=== PATIENT | female | born 1955 | race Caucasian/White ===

== ENCOUNTER 2025-06-19 11:02 | Outpatient (AMB) | payer BC, SELFPAY ==
--- OUTSIDE RECORDS SUMMARY | 2025-05-16 09:02 | XMS_ITS | Continuity of Care Document ---
Author Organization [facility] Address [address] [facility] [address] [place] [address] Phone Care Team Providers Care Animal Husbandry Professor Name Role Phone Figueroa TROTTER, DENNIS, Eliel PERRY Unavailable U navailable Allergies, Adverse Reactions, Alerts Substance Reaction Status Criticality No Known Allergies Active No Inform ation Procedures Procedure Date Office/Outpt E&M Established 25 Mins- CT & [place] Surgical Stockings CVR Reveal Knee High 20-30 Duplex Scan-extrem Veins; Comp- CT & [place] Office/Outpt E&M Established 15 Mins- CT & [place] Duplex Scan-extrem Veins; Comp- CT & [place] Offic Cons New/estab Mod 40 Mi- CT & [place] Duplex Scan-extrem Veins; Comp- CT & [place] Advance Directives Directive Yes / No Effective Date File Name No Information Encounters Encounter Description Practice Location Reason(s) For Visit Diagnoses Date Provider Providers Copied on Encounter [facility], [address] [facility] [address], [place], [id number], [place] tel:[phone] CVR - [facility] No Information 5 Figueroa TROTTER, [place] CO[place]. [address] [facility] [address], [place], [id number] , [place]. tel:[phone] Office/Outpt E&M Established 25 Mins- CT & [place] [facility], [address] [place] [address] Dr Schwartz [address]C[place], [id number], tel:[phone] [place] Chronic venous hypertension (idiopathic) with other complications of bilateral lower extremityEssent ial (primary) hypertension 5 Figueroa TROTTER RVT, [place] Julian. [address] [place] [address], [place], [id number] , [place]. tel:[phone] Referring Provider: Charmaine Hong, [address] [place] [address] [place], [address]. tel:[phone] [facility], [address] [place] [address] Dr Schwartz [address]Cesar [place], [id number], [place] tel:[phone] CV[place] Chronic venous hypertension (idiopathic) with other complications of bilateral lower extremity 5 Figueroa TROTTER RVT, [place] Julian. [address] [place] [address], [place], [id number] , [place]. [phone] Referring Provider: Eliel Marti MD, RVT, RPVI, [address] [place] [address], [facility] [place], [address] . tel:[phone] Office/Outpt E&M Established 15 Mins- CT & [place] [facility], [address] [place] [address] Dr Schwartz [address]Suite Cesar [place], [id number], [place] tel:[phone] CVR - [facility] Venous insufficiency (chronic) (peripheral)Ess ential (primary) hypertension 4 Figueroa TROTTER RVT, RPVI Robert. [address] [place] [address], [facility] [place], [id number] , [place]. [phone] Referring Provider: Hetal Leiva NP, [facility] [facility] [employer] [address] [place], [address]. tel:[phone] [facility], [address] [place] [address] Dr [address]Cesar [place], [id number], tel:[phone] CVR - [place] Chronic venous hypertension (idiopathic) with other complications of bilateral lower extremity 4 Figueroa TROTTER RVT, [place] Julian. [address] [facility], [address], [place], [id number] , [place]. tel:[phone] Referring Provider: Eliel Marti MD, RVT, [place], [address] [place] [address] [address], [place], [address] . tel:[phone] Offic Cons New/estab Mod 40 Mi- CT & [place] [facility], [address] [place] [address] Dr Schwartz [address]Cesar [place], [id number], [place] tel:[phone] CV[place] - [place] Pain in right lower legPain in left lower legPain in right legPain in left legEssential (primary) hypertensionVen ous insufficiency (chronic) (peripheral)Cardiology Teacher mp and spasmLocalized edema 4 Figueroa TROTTER RVT, [place] Julian. [address] [facility], [address], [place], [id number] , [place]. [phone] Referring Provider: Stephen Merchant DPM, [facility] [address], [place], [address]. tel:[phone] [facility], [address] [place] [address] Dr Schwartz [address]Cesar [place], [id number], [place] tel:[phone] CVR - [place] Chronic venous hypertension (idiopathic) with other complications of bilateral lower extremity 4 Figueroa TROTTER RVT, [place] Julian. [address] [facility], [address], [place], [id number] , [place]. tel:[phone] Referring Provider: Eliel Marti MD, RVT, [place], [address] [facility] [address], [place], [address] . tel:[phone] Family History Family Member Type Diagnosis Age At Onset No Information Payers Payer name Insurance type Covered democrat ID Authoriza tijocelyn(s) [place] [id number] Social History Type Description Quantity Date Captured Comments Sex Female Smoking Status No Information Chief Complaint And Reason For Visit No Information Reason For Referral Reason For Referral No Information Plan Of Treatment Date Type Action Status Goal Tobacco cessation counseling completed Goal Diet education completed Goal Tobacco cessation counseling completed Goal Diet education completed Goal Diet education completed Goal Tobacco cessation counseling completed Referral Ordered: Weight management: Referral to physician timeframe: 3 Months (related to Body mass index (BMI) 29.0-29.9, adult) ordered Referral Ordered: Weight management: Referral to physician timeframe: 3 Months (related to Body mass index (BMI) 29.0-29.9, adult) ordered Referral Ordered: Weight management: Referral to physician timeframe: 3 Months (related to Body mass index (BMI) 29.0-29.9, adult) ordered Appointment Rebecca Villanueva BOOKED Appointment Rebecca Villanueva BOOKED Appointment Rebecca Villanueva BOOKED Appointment Rebecca Villanueva BOOKED History Of Present Illness Encounter Date Complaint History Of Prese nt Illness No Information Functional Status Date Functional Assessmen t No Information Instructions Date Instruction Additional Infor elisa Pre and post instruc tions reviewed and provided Related to Chronic venous hypertension (idiopathic) with other complications of bilateral lower extremity Lifestyle education Related to B shanti mass index (BMI) 29.0-29.9, adult Giving Encouragement to exercise Related to Body mass index (BMI) 29.0-29.9, adult Diet education Related to Body mass index (BMI) 29.0-29.9, adult Patient education booklet given Related to Chronic venous hypertension (idiopathic) with other complications of bilateral lower extremity Lifestyle education Related to B shanti mass index (BMI) 29.0-29.9, adult Giving Encouragement to exercise Related to Body mass index (BMI) 29.0-29.9, adult Diet education Related to Body mass index (BMI) 29.0-29.9, adult Patient education booklet given Related to Venous insufficiency (chronic) (peripheral) Compression stocking usage as conservative measure Related to Venous insufficiency (chronic) (peripheral) Patient education booklet given Related to Pain in right lower leg Lifestyle education Related to B shanti mass index (BMI) 29.0-29.9, adult Giving Encouragement to exercise Related to Body mass index (BMI) 29.0-29.9, adult Diet education Related to Body mass index (BMI) 29.0-29.9, adult Compression stocking usage as conservative measure Related to Pain in right lower leg Assessments Type Assessment Date No Information Patient Care Teams Name Effective Dates (start - stop) Status Members No Information
--- OUTSIDE RECORDS SUMMARY | 2025-06-19 11:57 | XMS_ITS | Clinical Summary ---
Author Organization [facility] [address] [facility] [address] Address [address] [place] [address] Phone Care Team Providers Care Rink Rat Name Role Phone Hetal Bruton NP Primary Care Provider Allergies No known active allergies Encounters Date Type Department Care Team Description 06/04/2025 Telephone Gastroenterology - [address] [phone] Rachel Rowell MD 03/28/2025 8:30 AM EDT Office Visit Gastroenterology - [address] [phone] Rut Hoffmann NP Gastroesophageal reflux disease, unspecified whether esophagitis present (Primary Dx) from Last 3 Months Social History Tobacco Use Types Packs/Day Years Used Date Smoking Tobacco: Never Assessed Comments Unknown Sex and Gender Information Value Date Recorded Sex Assigned at Not on file Legal Sex Female 2:01 AM EST Gender Identity Not on file Sexual Orientation Not on file Last Filed Vital Signs Vital Sign Reading Time Taken Comments Blood Pressure - - Pulse - - Temperature - - Respiratory Rate - - Oxygen Saturation - - Inhaled Oxygen Concentration - - Weight 78.5 kg (173 lb) 03/28/2025 8:20 AM EDT Height 165.1 cm (5' 5 ) 03/28/2025 8:20 AM EDT Body Mass Index 28.79 03/28/2025 8:20 AM EDT Plan of Treatment Health Maintenance Due Date Last Done Comments Pneumococcal Vaccine: 50+ Years (1 of 1 - PCV) 2004 Zoster Vaccines (1 of 2) 2004 Cholesterol Screening (Lipid Panel) 09/26/2022 Colorectal Cancer Screening: Colonoscopy 09/26/2022 Falls Risk Assessment 09/26/2022 Hepatitis C Screening 09/26/2022 Medicare Annual Wellness Visit 09/26/2022 Osteoporosis Screening (Bone Density Screening) 09/26/2022 Social Influencers of Health Screening 09/26/2022 COVID-19 Vaccine ( season) 2024 09/15/2021, 01/26/2021, 12/29/2020 Hypertension/CHF/CAD Annual BMP Blood Test 10/16/2024 Depression Screening 10/24/2024 Influenza Vaccine (#1) 2025 08/07/2020, 2018 Breast Cancer Screening 07/25/2026 07/25/20, 07/20/2023, 07/18/2022, Additional history exists DTaP,Tdap,and Td Vaccines (2 - Td or Tdap) 11/28/2028 11/28/2018 RSV Immunization Adult Patients (1 - 1-dose 75+ series) 2029 HIB Vaccines Aged Out No longer eligi ble based on patient's age to complete this topic HPV Vaccines Aged Out No longer eligi ble based on patient's age to complete this topic Hepatitis A Vaccines Aged Out No long er eligible based on patient's age to complete this topic Hepatitis B Vaccines Aged Out No long er eligible based on patient's age to complete this topic IPV Vaccines Aged Out No longer eligi ble based on patient's age to complete this topic MMR Vaccines Aged Out No longer eligi ble based on patient's age to complete this topic Meningococcal ACWY Vaccine Aged Out N o longer eligible based on patient's age to complete this topic Meningococcal B Vaccine Aged Out No l onger eligible based on patient's age to complete this topic RSV Immunization Patients Under 20 months Aged Out No longer eligible based on patient's age to complete this topic Varicella Vaccines Aged Out No longer eligible based on patient's age to complete this topic Procedures Procedure Name Priority Date/Time Associated Diagnosis Comments VENU SCREENING DIGITAL Routine 07/25/2024 4:04 PM EDT Encounter for screening mammogram for malignant neoplasm of breast from Last 3 Months or Most Recently Relevant to Health Maintenance Results * [facility] SCREENING DIGITAL (07/25/2024 4:04 PM EDT) Anatomical Region Laterality Modality Mammography 07/25/2024 7:13 AM EDT Narrative 07/25/2024 4:[address] [facility] Diagnostic Imaging Department [address] [place] [address] Patient: REBECCA BHAGAT Sarah /Age/Sex: 1955 - 68 - F Unit#: [id number] Location/Status: [facility] CLI Mnemonic/Ordering Site: [facility] Ordering Physician: HETAL BURTON NP [facility] Screening Digital - 07/25/24 0732 Report Status:Signed EXAM: [facility] Screening Digital EXAM DATE AND TIME: 07/25/2024 7:32 AM HISTORY: Screening. Excisional and percutaneous left breast biopsies yielding benign pathology. COMPARISON: 07/20/23, 07/17/22, 06/30/21, 06/18/20 TECHNIQUE: Bilateral digital breast tomosynthesis was performed in the CC and MLO projections. Computer aided detection with Clearhaus 3D 3.1 was employed. TISSUE DENSITY: b. There are scattered areas of fibroglandular density. FINDINGS: The left nipple is not in profile on the views provided. The patient will be recalled for nipple spot compression tomosynthesis views at no additional charge. Mild asymmetry and architectural distortion are again seen in the upper left breast, stable, consistent with surgical scar. A biopsy marker is also seen in the upper outer left breast. No suspicious masses, grouped microcalcifications, or developing architectural distortion are seen. The skin and vascularity are unremarkable. IMPRESSION: 1. Left breast nipple in profile views needed for completion mammography. The patient will be called back. 2. Stable mammographic appearance of the right breast. No evidence of malignancy is seen. BI-RADS: Category 0: Incomplete - Need Additional Imaging Evaluation RECOMMENDATION(S): 1: Special mammographic view(s) needed LEFT [facility]amm[facility] performed at [facility] [place] [address] Dictating Physician: THIAGO KNOWLES MD Electronically Signed by: THIAGO KNOWLES MD Dic Date/Time: 07/25/24 1601 Sign date/Time: 07/25/24 160 Procedure Note Thiago Knowles MD - 08/21/2024 [facility] Diagnostic Imaging Department [address] [place] [address] Patient: BHAGATREBECCA T /Age/Sex: 1955 - 68 - F Unit#: [id number] Location/Status: [facility]/REG CLI Mnemonic/Ordering Site: [facility] Ordering Physician: HETAL BURTON NP [facility] Screening Digital - 07/25/24 - 0732 Report Status:Signed EXAM: [facility] Screening Digital EXAM DATE AND TIME: 07/25/2024 7:32 AM HISTORY: Screening. Excisional and percutaneous left breast biopsiesyielding benign pathology. COMPARISON: 07/20/23, 07/17/22, 06/30/21, 06/18/20 TECHNIQUE: Bilateral digital breast tomosynthesis was performed in the CCand MLO projections. Computer aided detection with Clearhaus 3D 3.1was employed. TISSUE DENSITY: b. There are scattered areas of fibroglandular density. FINDINGS: The left nipple is not in profile on the views provided. The patient willbe recalled for nipple spot compression tomosynthesis views at noadditional charge. Mild asymmetry and architectural distortion are again seen in the upperleft breast, stable, consistent with surgical scar. A biopsy marker is alsoseen in the upper outer left breast. No suspicious masses, grouped microcalcifications, or developingarchitectural distortion are seen. The skin and vascularity are unremarkable. IMPRESSION: 1. Left breast nipple in profile views needed for completion mammography.The patient will be called back. 2. Stable mammographic appearance of the right breast. No evidence of malignancy is seen. BI-RADS: Category 0: Incomplete - Need Additional Imaging Evaluation RECOMMENDATION(S): 1: Special mammographic view(s) needed LEFT Mammogram performed at [facility] [place] [address] Dictating Physician: THIAGO KNOWLES MD Electronically Signed by: THIAGO KNOWLES MD Dic Date/Time: 07/25/24 1601 Sign date/Time: 07/25/24 1604 Hetal Burton NP IMG BI PROCEDURES Final Resu lt from Last 3 Months or Most Recently Relevant to Health Maintenance Insurance BLUE CR[place] - [place] MEDIC[place] ADVANT[place] Care Teams Rink Rat Relationship Specialty Start Date End Date Hetal Burton NP [address] [place] [address] PCP - General Nurse Practitioner 10/05/24
--- OUTSIDE RECORDS SUMMARY | 2025-06-19 11:57 | XMS_ITS | Patient Health Record ---
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 foot (M19.072) Diagnosis 4 Flat foot [pes planu s] (acquired), left foot (M21.42) Diagnosis 5 Pain in left foot (M 79.672) Diagnosis 6 Pain in left toe(s) (M79.675) Diagnosis 7 Subungual hematoma o f left foot, initial encounter (S90.222A) Diagnosis 8 Contusion of lesser toe of left foot without damage to nail, initial encounter (S90.122A) Diagnosis 9 Closed non-physeal f racture of middle phalanx of lesser toe of left foot, initial encounter (S92.522A) Diagnosis 10 Strain of foot, left (S96.912A) Diagnosis 11 Edema, lower extremi ty (R60.0) Diagnosis 12 Pain in left ankle a nd joints of left foot (M25.572) Diagnosis 13 Pain in unspecified joint (M25.50) Diagnosis 14 Joint disorder, unsp ecified (M25.9) Diagnosis 15 Other bursitis, not elsewhere classified, left ankle and foot (M71.572) Diagnosis 16 Metatarsalgia, left foot (M77.42) Referring Provider First Name Hetal Referring Provider Last Name Cali Referred [facility] Referred Provider Jean Carlos Disla Referred Address [address] [place],[address],[place] Referred Provider Specialty Podiatry Referral Priority Routine Medications Medication SIG (Take, Route, Frequency, Duration) Notes Start Date End Date Status Meloxicam 15 MG 1 tablet Orally Once a day Unknown Mucinex Unknown Fluticasone Furoate Unknown Calcium + D Unknown Lisinopril 5 MG 1 tablet Orally Once a day Unknown Vitamin D Unknown Magnesium 500 MG 1 tablet with a meal Orally Once a day; Duration: 30 day(s) Not-Taking Compression Stockings 20-30mm Hg 1 pair wear daily; Duration: 30 days Active ASO Ankle/Foot Stablizing AFO As directed Wear Daily; Duration: as needed 01/29/2022 Active Vitamin D3 50 MCG (1999 UT) 1 capsule Orally Once a day; Duration: 30 day(s) Active Vitamin C 1000 MG 1 tablet Orally Once a day Active PreserVision AREDS A ctive Hertel 3 Active Levothyroxine Sodium 125 MCG 1 tablet in the morning on an empty stomach Orally Once a day; Duration: 30 day(s) night time Active Cod Liver Oil - as directed Orally Active Fish Oil 1000 MG 1 capsule Orally Once a day Active amLODIPine Besylate 5 MG 1 tablet Orally Once a day; Duration: 30 day(s) Active Lexapro 20 MG 1 tablet Orally Once a day; Duration: 30 day(s) Active Immunizations Vaccine Route Administration Date Status Comme [facility] COVID-19 Moderna Vaccine Unknown 09/15/2021 Administered 1st 12/29/20 2nd 01/26/21 Social History Tobacco Use: Social History Observation Description Date Details (start date - stop date) Former Smoker NA - NA Tobacco Use/Smoking Question Answer Notes Are you a: former smoker Additional Findings: Tobacco Non-User Current no n-smoker Alcohol Screen Question Answer Notes Did you have a drink containing alcohol in the p ast year? Yes Points 0 Interpretation Negative Tobacco use other than smoking: Question Answer Notes Are you an other tobacco user? No Problems Problem Type SNOMED Code ICD Code Onset Dates Problem Status W/U Status Risk Notes Problem 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 Vital Signs Blood pressure diastolic 80 mm Hg 07/06/2024 Height 5 ft 5 in in 07/06/2024 Blood pressure systolic 120 mm Hg 07/06/2024 Weight 172 lbs 07/06/2024 BMI 28.62 kg/m2 07/06/2024 Encounters Encounter Location Date Provider Diagnosis [facility] [address] [place] [address] 07/06/2024 Jean Carlos Disla Contusion of lesser toe of left foot without damage to nail, initial encounter S90.122A ; Pain in left toe(s) M79.675 and Closed non-physeal fracture of middle phalanx of lesser toe of left foot, initial encounter S92.522A Assessments Encounter Date Diagnosis (ICD Code) Assessment Notes Treatment Notes Treatment Clinical Notes Section Notes 07/06/2024 Contusion of lesser toe of left foot without damage to nail, initial encounter (ICD-10 - S90.122A) 07/06/2024 Closed non-physeal fracture of middle phalanx of lesser toe of left foot, initial encounter (ICD-10 - S92.522A) 07/06/2024 Pain in left toe(s) (ICD-10 - M79.675) Plan Of Treatment Pending Test Test Name Order Date X ray : Foot, left 3V 07/06/2024 Insurance Providers Payer Name Payer Address Payer Phone Subscriber Number Group Number Insured Name Patient Relationship to Insured Coverage Start Date Coverage End Date [employer] 65 Medicare Preferred [address] [place] [address] [phone] [id number] Rebecca Ortiz Self - patient is the insured Medical (General) History Medical History History ICD Code Arthritis Back,Hip,and Knee pain Fibromyalgia Hypertension Macular degeneration Thyroid disorder Sinus conditions Cataracts Diverticulosis Surgical History Surgery Date(Month/Year) removal of partial ovaries 1989 Thyroid Surgery 1997? Left ovary surgery 1999?
--- OUTSIDE RECORDS SUMMARY | 2025-06-19 11:57 | XMS_ITS | Encounter Summary ---
Author Organization [facility] Address [address] [facility] [address] [place] [address] Phone Care Team Providers Care Decatizer Name Role Phone Robert Oliva MD Primary Care Provider [phone] Encounter Details Date Type Department Care Team (Late Contact Info) Description 06/16/2022 Documentation Only [facility] [address] [place] [address] Mykel Peoples MD [address] [place] [address] [place] [address] Social History Tobacco Use Types Packs/Day Years Used Date Smoking Tobacco: Former Cigarettes Q uit: 10/24/1971 Comments:Smoking History Inf o:Every day Alcohol Use Standard Drinks/Week Comments Yes 0 (1 standard drink = 0.6 oz pure alcohol) Alcoholic Drinks/day: Occasional social drink Comments Unknown Sex and Gender Information Value Date Recorded Sex Assigned at Not on file Legal Sex Female 11:02 AM EST Gender Identity Not on file Sexual Orientation Not on file documented as of this encounter Plan of Treatment Upcoming Encounters Date Type Department Care Team (Late st Contact Info) Description 12/20/2025 1:30 PM EST Office Visit [facility] [address] [place] [address] Mykel Peoples MD [address] [place] [address] [place] [address] documented as of this encounter Visit Diagnoses Not on filedocumented in this encounter Care Teams Decatizer Relationship Specialty Start Date End Date Robert Oliva MD [address] [place] [address] PCP - General Internal Medicine 07/01/21 documented as of this encounter
--- OUTSIDE RECORDS SUMMARY | 2025-06-19 11:57 | XMS_ITS | Clinical Summary ---
Author Organization [facility], Address [address] [place] [address] [place] [address] Phone Care Team Providers Care International Nurse Name Role Phone Robert Oliva MD Primary Care Provider [phone] Medications ASPIRIN 81 PO aspirin Active amLODIPine Besylate (NORVASC PO) amlodipine Active nitrofurantoin, macrocrystal-mo nohydrate, (Macrobid) 100 MG capsule 1 capsule 2 (two) times a day Active omeprazole OTC (PriLOSEC OTC) 20 MG EC tablet Take 1 tablet by mouth 1 (one) time each day Active sucralfate (Carafate) 1 GM/10ML suspension Comments: Filled Date: Mar 22 2017 12:00AM Patient Notes: TAKE 2 TEASPOONFULS (10 MILLILITERS) BY MOUTH FOUR TIMES A DAY NEED ED Duration: 30 7 Active amLODIPine (NORVASC) 5 MG tablet Take 5 mg by mouth 1 (one) time each day Active Aspirin Low Dose 81 MG chewable tablet Chew 81 mg 1 (one) time each day 1 Active ergocalciferol 1.25 MG (29399 UT) capsule Take 1 capsule by mouth every 14 (fourteen) days Active levothyroxine (SYNTHROID, LEVOTHROID) 125 MCG tablet Take 100 mcg by mouth 1 (one) time each day 1 Active methylPREDNISol one (MEDROL DOSPAK) 4 MG tablet TAKE 6 TABLETS ON DAY 1 DIRECTED ON PACKAGE AND DECREASE BY 1 TAB EACH DAY FOR A TOTAL OF 6 DAYS 1 Active omeprazole (PriLOSEC) [address] capsule 1 Active fluticasone (FLONASE) 50 MCG/ACT nasal spray USE 1 SPRAY IN EACH NOSTRIL TWICE A DAY 2 Active hydrOXYzine (ATARAX) 25 MG tablet TAKE 1 TABLET BY MOUTH TWICE A DAY NEEDED FOR ANXIETY FOR 30 DAYS 2 Active prednisoLONE Sodium Phosphate 6.7 (5 Base) MG/5ML solution TAKE 1 TEASPOON BY MOUTH TWICE A DAY, GARGLE AND SWALLOW FOR 10 DAYS. 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 Hypertensive disorder 11/27/2019 Encounters Date Type Department Care Team Description 03/25/2025 Telephone [facility] [address] [place] [address] Mayda aCrreon MA from Last 3 Months Family History Medical History Relation Comments Heart disease Father Diabetes Mother type 2 Heart disease Mother Hypertension Mother Relation Status Comments Father Mother Social History Tobacco Use Types Packs/Day Years [...] Sign Reading Time Taken Comments Blood Pressure 120/58 12/17/2024 9:10 AM EST Pulse - - Temperature - - Respiratory Rate - - Oxygen Saturation - - Inhaled Oxygen Concentration - - Weight 79.2 kg (174 lb 9.6 oz) 06/27/2019 12:00 PM EDT Height 167.6 cm (5' 6 ) 06/27/2019 12:00 PM EDT Body Mass Index 28.18 06/27/2019 12:00 PM EDT Plan of Treatment Upcoming Encounters Date Type Department Care Team (Late st Contact Info) Description 12/20/2025 1:30 PM EST Office [facility] [address] [place] [address] Mykel Peoples MD [address] [address] [place] [id number] Health Maintenance Due Date Last Done Comments Breast Cancer Screening 1954 Pneumococcal Vaccine: 50+ Years (1 of 2 - PCV) 1973 Colorectal Cancer Screening: Annual FOBT 2003 Colorectal Cancer Screening: Colonoscopy 2003 Colorectal Cancer Screening: Sigmoidoscopy 2003 Influenza Vaccine (#1) 2025 , 11/06/2018 Hepatitis B Vaccine Aged Out No longe r eligible based on patient's age to complete this topic Insurance [facility] Care Teams International Nurse Relationship Specialty Start Date End Date Robert Oliva MD [address] [place] [id number] PCP - General Internal Medicine 07/01/21
== END 2025-06-19 11:05 | disposition home or self-care (01) ==
LOC: HO.HMGAL 11:02
PROVIDERS: PCP Nurse Practitioner Adult Health; Visit Provider Registered Nurse Emergency
DX: J30.89 Other allergic rhinitis (principal)
CPT/HCPCS: 95117; 95165

== ENCOUNTER 2025-09-16 14:22 | Outpatient (AMB) | payer BC, SELFPAY ==
--- OUTSIDE RECORDS SUMMARY | 2025-09-02 04:00 | XMS_ITS | Continuity of Care Document ---
Author Organization [facility] Address [address] [place] [address] Phone Care Team Providers Care Internal Specialist Name Role Phone Figueroa TROTTER, RVT, RPADRIANA, Eliel Unavailable U navailable Allergies, Adverse Reactions, Alerts Substance Reaction Status Criticality No Known Allergies Active No Inform ation Procedures Procedure Date Office/Outpt E&M Established 15 Mins- CT & [place] Duplex Scan-extrem Veins; Comp- CT & [place] Duplex Scan-extrem Veins; Uni/ CT & MA S Varithena, Single Truncal Vein - CT & [place] Office/Outpt E&M Established 25 Mins- CT & [place] Surgical Stockings CVR Reveal Knee High 20-30 Duplex Scan-extrem Veins; Comp- CT & [place] Office/Outpt E&M Established 15 Mins- CT & [place] Duplex Scan-extrem Veins; Comp- CT & [place] Offic Cons New/estab Mod 40 Mi- CT & [place] Duplex Scan-extrem Veins; Comp- CT & [place] Advance Directives Directive Yes / No Effective Date File Name Other Directive No 09/02/2025 N/A WARNING:The information contained in this section is historical and is provided for information only and does not constitute a legal document or any assurance that the information is still accurate. Please verify the information with the ly of the legal document before using it for clinical purposes. Encounters Encounter Description Practice Location Reason(s) For Visit Diagnoses Date Provider Providers Copied on Encounter Office/Outpt E&M Established 15 Mins- CT & [place] [facility] MD [facility], [address] [place] [address] Dr Schwartz 1000Suvaleri 1000Cesar [place], [id number], tel:[phone] R - [facility] Localized edemaVenous insufficiency (chronic) (peripheral)Ess ential (primary) hypertension 5 Figueroa TROTTER RVT, [place] Julian. [address] [place] [address], [place] [address], [facility] [place], [id number] , [place]. tel:[phone] Referring Provider: Charmaine Hong, [facility], [facility], [address]. tel:[phone] [facility], [address] [place] [address] Dr Schwartz [facility] [place], [id number], [place] tel:[phone] [facility] Varicose veins of bilateral lower extremities with pain 5 Figueroa TROTTER RVT, [place] Julian. [address] [place] [address], [facility] [place], [id number] , [place]. tel:[phone] Referring Provider: Charmaine Hong, [facility] [place], [address]. tel:[phone] [facility], [address] [place] [address] Dr Schwartz 1000SuCesar ernandez [place], [id number], [place] tel:[phone] [facility] Encounter for follow-up examination after completed treatment for conditions other than malignant neoplasmChronic venous hypertension (idiopathic) with other complications of right lower extremity 5 Figueroa TROTTER RVT, [place] Julian. [address] [facility], Suite [facility], [facility] [place], [id number] , [place]. tel:[phone] Referring Provider: Charmaine Hong, [facility] [place], [address]. tel:[phone] [facility], [address] [place] [address] Dr Schwartz 1000SuCesar ernandez [place], [id number], [place] tel:[phone] [facility] - [place] [facility] [place] Chronic venous hypertension (idiopathic) with inflammation of right lower extremity Jun- 5 Figueroa TROTTER RVT, RPVI Robert. [address] [place] [address], [facility] [place], [id number] , [place]. tel:[phone] Referring Provider: Charmaine Hong, [address] [place] [address], [address]. tel:[phone] [facility], [address] [place] [address] Dr Schwartz 1000SuCesar ernandez [place], [id number], [place] tel:[phone] [facility] - [place] No Information Apr- 5 Figueroa TROTTER RVT, RPVI Robert. [address] [place] [address], [facility] [place], [id number] , [place]. tel:[phone] Office/Outpt E&M Established 25 Mins- CT & [place] [facility], [address] [place] [address] Dr Schwartz 1000SuCesar ernandez [place], [id number], [place] tel:[phone] CVR - [facility] Chronic venous hypertension (idiopathic) with other complications of bilateral lower extremityEssent ial (primary) hypertension Mar- 5 Figueroa TROTTER RVT, RPVI Robert. [address] [place] [address], [facility] [place], [id number] , [place]. tel:[phone] Referring Provider: Charmaine Hong, [facility] [place], [address]. tel:[phone] [facility], [address] [place] [address] Dr Schwartz 1000SuCesar ernandez [place], [id number], [place] tel:[phone] CVR - [facility] Chronic venous hypertension (idiopathic) with other complications of bilateral lower extremity Peter- 5 Figueroa TROTTER RVT, RPVI Robert. [address] [place] [address], Jeannette banks [place], [id number] , [place]. tel:[phone] Referring Provider: Eliel Marti MD, RVT, [place], [address] [place] [address], [place], [address] . tel:[phone] Office/Outpt E&M Established 15 Mins- CT & [place] [facility], [address] [place] [address] Dr Schwartz 1000Suite 1000Cesar [place], [id number], tel:[phone] [facility] - [place] Venous insufficiency (chronic) (peripheral)Ess ential (primary) hypertension 4 Figueroa TROTTER RVT, [place] Eliel. [address] [place] [address], Jeannette banks [place], [id number] , [place]. tel:[phone] Referring Provider: Hetal Leiva DIRECTOR OF PUBLIC RELATIONS, [facility] [place], [address]. tel:[phone] [facility], [address] [place] [address] Dr Schwartz 1000Suite 1000Cesar [place], [id number], [place] tel:[phone] [facility] - [place] Chronic venous hypertension (idiopathic) with other complications of bilateral lower extremity 4 Figueroa TROTTER RVT, [place] Julian. [address] [place] [address], Jeannette banks [place], [id number] , [place]. tel:[phone] Referring Provider: Eliel Marti MD, RVT, [place], [address] [place] [address], [place], [address] . tel:[phone] Offic Cons New/estab Mod 40 Mi- CT & [place] [facility], [address] [place] [address] Dr Schwartz 1000[address] 1000Cesar [place], [id number], [place] tel:[phone] [place] Pain in right lower legPain in left lower legPain in right legPain in left legEssential (primary) hypertensionVen ous insufficiency (chronic) (peripheral)Brake Rider mp and spasmLocalized edema 4 Figueroa TROTTER RVT, [place] Julian. [address] [facility], [address], [facility] [place], [place], [id number] , [place]. tel:[phone] Referring Provider: Stephen Merchant DPM, [address] [facility] [address], [place], [address]. tel:[phone] [facility], [address] [facility] [address], [place], [id number], [place] tel:[phone] [facility] - [place] Chronic venous hypertension (idiopathic) with other complications of bilateral lower extremity 4 Figueroa TROTTER RVT, [place] Julian. [address] [facility], [address], [place], [place], [id number] , [place]. tel:[phone] Referring Provider: Eliel Marti MD, RVT, [place], [address] [facility] [address], [facility] [place], [address] . tel:[phone] Family History Family Member Type Diagnosis Age At Onset No Information Payers Payer name Insurance type Covered republican ID Jd johnson(s) BCBS [place] Medicare Advantage [id number] Social History Type Description Quantity Date Captured Comments Alcohol Use Details Unknown Caffeine Use Details Unknown Tobacco Use Status No Information Smoking Status Former Smoker Non-Smoking Tobacco Use Details : No Details Available : No Details Available Sex Female Vital Signs Date / Time: Height Weight BMI Pulse Rate Blood Pressure Temperature Respiratory Rate Body Surface Area Head Circumference Head Circ. Percentile Wt./Barrett. Percentile BMI percentile Pulse Ox Inhaled Ox 80.290 kg (177.00 lbs) 29.5 3 kg/m eter (2) 136/74 mm[Hg] Chief Complaint And Reason For Visit No Information Reason For Referral Reason For Referral No Information Plan Of Treatment Date Type Action Status Goal Diet education completed Goal Tobacco cessation [...] Information Instructions Date Instruction Additional Infor elisa Diet education Related to Body mass index (BMI) 29.0-29.9, adult Giving Encouragement to exercise Related to Body mass index (BMI) 29.0-29.9, adult Lifestyle education Related to B shanti mass index (BMI) 29.0-29.9, adult Patient education booklet given Related to Localized edema Pre and post instruc tions reviewed and provided Related to Localized edema Patient education booklet given Related to Chronic venous hypertension (idiopathic) with other complications of bilateral lower extremity Diet education Related to Body mass index (BMI) 29.0-29.9, adult Giving Encouragement to exercise Related to Body mass index (BMI) 29.0-29.9, adult Lifestyle education Related to B shanti mass index (BMI) 29.0-29.9, adult Pre and post instruc tions reviewed and provided Related to Chronic venous hypertension (idiopathic) with other complications of bilateral lower extremity Compression stocking usage as conservative measure Related to Venous insufficiency (chronic) (peripheral) Patient education booklet given Related to Venous insufficiency (chronic) (peripheral) Diet education Related to Body mass index (BMI) 29.0-29.9, adult Giving Encouragement to exercise Related to Body mass index (BMI) 29.0-29.9, adult Lifestyle education Related to B shanti mass index (BMI) 29.0-29.9, adult Diet education Related to Body mass index (BMI) 29.0-29.9, adult Giving Encouragement to exercise Related to Body mass index (BMI) 29.0-29.9, adult Lifestyle education Related to B shanti mass index (BMI) 29.0-29.9, adult Patient education booklet given Related to Pain in right lower leg Compression stocking usage as conservative measure Related to Pain in right lower leg Assessments Type Assessment Date No Information Patient Care Teams Name Effective Dates (start - stop) Status Members No Information
--- OUTSIDE RECORDS SUMMARY | 2025-09-16 19:16 | XMS_ITS | Clinical Summary ---
Author Organization [facility] [address] [facility] Address [address] [place] [address] Phone Care Team Providers Care Sales Clerk Name Role Phone Hetal Burton NP Primary Care Provider [phone] Allergies No known active allergies Social History Tobacco Use Types Packs/Day Years [...] 2004 Zoster Vaccines (1 of 2) 2004 Colorectal Cancer Screening: Colonoscopy 09/11/2022 09/11/2012 Cholesterol Screening (Lipid Panel) 09/26/2022 Falls Risk Assessment 09/26/2022 Hepatitis C Screening 09/26/2022 Medicare Annual Wellness Visit 09/26/2022 Osteoporosis Screening (Bone Density Screening) 09/26/2022 Social Influencers of Health Screening 09/26/2022 Hypertension/CHF/CAD Annual BMP Blood Test 10/16/2024 Depression Screening 10/24/2024 COVID-19 Vaccine ( season) 2025 09/15/2021, 01/26/2021, 12/29/2020 Influenza Vaccine (#1) 2025 08/07/2020, 2018 Breast [...] Procedure Name Priority Date/Time Associated Diagnosis Comments LUDY SCREENING DIGITAL Routine 07/25/2024 4:04 PM EDT Encounter for screening mammogram for malignant neoplasm of breast EXTERNAL COLONOSCOPY REPORT Routine 09/11/2012 7:35 AM EST from Last 3 Months or Most Recently Relevant to Health Maintenance Results * LUDY SCREENING DIGITAL (07/25/2024 4:04 PM EDT) Anatomical Region Laterality Modality Mammography 07/25/2024 7:13 AM EDT Narrative 07/25/2024 4:04 PM EDT [facility] Diagnostic Imaging Department [address] [place] [id number] Patient: REBECCA BHAGAT Sarah Gore./Age/Sex: 1955 - 68 - F Unit#: [id number] Location/Status: SPDIMAM/REG CLI Mnemonic/Ordering Site: [facility] Ordering Physician: HETAL BURTON NP [facility] Screening Digital - 07/25/[address] Report Status:Signed EXAM: [facility] Screening Digital EXAM DATE AND TIME: 07/25/2024 7:32 AM HISTORY: Screening. Excisional and percutaneous left breast biopsies yielding benign pathology. COMPARISON: 07/20/23, 07/17/22, 06/30/21, 06/18/20 TECHNIQUE: Bilateral digital breast tomosynthesis was performed in the CC and MLO projections. Computer aided detection with [employer] 3D 3.1 was employed. TISSUE DENSITY: b. [...] Mammogram performed at [facility] [address] [place] [address] Dictating Physician: ANGIE KNOWLES MD Electronically Signed by: ANGIE KNOWLES MD Dic Date/Time: 07/25/24 160 Sign date/Time: 07/25/24 160 Procedure Note Angie Knowles MD - 08/21/2024 [facility] Diagnostic Imaging Department [address] [place] [address] Patient: REBECCA BHAGAT Sarah /Age/Sex: 1955 - 68 - F Unit#: [id number] Location/Status: [facility] Mnemonic/Ordering Site: [facility] Ordering Physician: HETAL BURTON NP [facility] Screening Digital - 07/25/[address] Report Status:Signed EXAM: [facility] Screening Digital EXAM DATE AND TIME: 07/25/2024 7:32 AM HISTORY: Screening. Excisional and percutaneous left breast biopsiesyielding benign pathology. COMPARISON: 07/20/23, 07/17/22, 06/30/21, 06/18/20 TECHNIQUE: Bilateral digital breast tomosynthesis was performed in the CCand MLO projections. Computer aided detection with iCAD [employer] [place] AI 3D 3.1was employed. TISSUE DENSITY: b. There [...] Mammogram performed at [place] [address] Dictating Physician: ANGIE KNOWLES MD Electronically Signed by: ANGIE KNOWLES MD Dic Date/Time: 07/25/24 1601 Sign date/Time: 07/25/24 1604 Hetal Burton NP IMG BI PROCEDURES Final Resu lt * External Colonoscopy Report (09/11/2012 7:35 AM EST) Anatomical Region Laterality Modality Endoscopy Historical Provider GI~PROCEDURE ORDERABLES F inal Result from Last 3 Months or Most Recently Relevant to Health Maintenance Insurance [employer] [place] - [place] MEDICARE ADVANTAGE Care Teams Sales Clerk Relationship Specialty Start Date End Date Hetal Burton NP [address], [place] PCP - General Nurse Practitioner 10/05/24
== END 2025-09-16 14:23 | disposition home or self-care (01) ==
LOC: HO.HMGAL 14:22
PROVIDERS: PCP Physician Assistant Medical; Visit Provider Registered Nurse Emergency
DX: J30.89 Other allergic rhinitis (principal)
CPT/HCPCS: 95117; 95165

== ENCOUNTER 2025-10-07 14:59 | Outpatient (AMB) | payer BC, SELFPAY ==
--- OUTSIDE RECORDS SUMMARY | 2025-09-02 04:00 | XMS_ITS | Continuity of Care Document ---
Author Organization [facility] Address [address] [place] [address] Dr Schwartz [address] [place] [address] Phone Care Team Providers Care Sanitation Lead Name Role Phone Figueroa TROTTER, [place] COLLINS Robert Unavailable U navailable Allergies, Adverse Reactions, Alerts Substance Reaction Status Criticality No Known Allergies Active No Inform ation Procedures Procedure Date Office/Outpt E&M Established 15 Mins- CT & [place] Advance Directives Directive Yes [...] Location Reason(s) For Visit Diagnoses Date Provider Encounter Disposition Office/Outpt E&M Established 15 Mins- CT & [place] [facility], [address] [place] [address] Dr Schwartz 1000ite Cesar Streeter [place], [id number], tel:[phone] CV[facility] - [place] [facility] [place] Localized edemaVenous insufficiency (chronic) (peripheral)E ssential (primary) hypertension Figueroa TROTTER, [place] COLLINS. [address] [place] [address], [place], [place], [id number] , [place]. tel:[phone] [facility], [address] [place] [address] Dr Schwartz 1000SuCesar ernandez [place], [id number], tel:[phone] [facility] Varicose veins of bilateral lower extremities with pain Nov- 0- 5 Figueroa TROTTER RVT, RPVI Robert. [address] [place] [address], [place] [address], Jeannette banks, [place], [id number] , [place]. tel: [phone] [facility], [address] [place] [address] Dr Schwartz 1000SuCesar ernandez MD, [id number], [place] tel:[phone] [facility] Encounter for follow-up examination after completed treatment for conditions other than malignant neoplasmChron ic venous hypertension (idiopathic) with other complications of right lower extremity Sep-2 5 Figueroa TROTTER RVT, RPVI Robert. [address] [place] [address], Jeannette banks, [place], [id number] , [place]. tel: [phone] [facility], [address] [place] [address] Dr Schwartz 1000SuCesar ernandez [place], [id number], [place] tel:[phone] [facility]R [facility] Chronic venous hypertension (idiopathic) with inflammation of right lower extremity Sep- 5 Figueroa TROTTER RVT, RPVI Robert. [address] [place] [address], Jeannette banks, [place], [id number] , [place]. tel: [phone] [facility], [address] [place] [address] Dr Schwartz 1000SuCesar ernandez [place], [id number], [place] tel:[phone] [facility] No Information Apr- 5 Figueroa TROTTER RVT, RPVI Robert. [address] [place] [address], Aikenchris banks, [place], [id number] , [place]. tel: [phone] [facility], [address] [place] [address] Dr Schwartz 1000SuCesar ernandez [place], [id number], [place] tel:[phone] CVR - [facility] Chronic venous hypertension (idiopathic) with other complications of bilateral lower extremityEsse ntial (primary) hypertension Peter- 0 5 Figueroa TROTTER RVT, RPVI Robert. [address] [place] [address], [place]annette banks[place], [id number] , [place]. tel: [phone] [facility], [address] [place] [address] Dr Schwartz 1000[address] 1000Cesar [place], [id number], [place] tel:[phone] CVR - [place] [facility] [place] Chronic venous hypertension (idiopathic) with other complications of bilateral lower extremity Peter- 5 Figueroa TROTTER RVT, [place] Julian. [address] [place] [address], [address], [facility], [place], [id number] , [place]. tel: [phone] [facility], [address] [place] [address] Dr Schwartz 1000[address] 1000Cesar [place], [id number], [place] tel:[phone] CVR - [place] Venous insufficiency (chronic) (peripheral)E ssential (primary) hypertension Sep-0 4 Figueroa TROTTER RVT, [place] Julian. [address] [place] [address], [address], [facility], [place], [id number] , [place]. tel: [phone] [facility], [address] [place] [address] Dr Schawrtz 1000[address] 1000Cesar [place], [id number], [place] tel:[phone] CVR - [place] Chronic venous hypertension (idiopathic) with other complications of bilateral lower extremity 4 Figueroa TROTTER RVT, [place] Julian. [address] [place] [address], [address], [facility], [place], [id number] , [place]. tel: [phone] [facility], [address] [place] [address] Dr Schwartz 1000[address] 1000Cesar [place], [id number], [place] tel:[phone] CVR - [place] Pain in right lower legPain in left lower legPain in right legPain in left legEssential (primary) hypertensionV enous insufficiency (chronic) (peripheral)C ramp and spasmLocalize d edema 4 Figueroa TROTTER RVT, [place] Julian. [address] [place] [address], [address], [facility], [place], [id number] , [place]. tel: [phone] [facility], [address] [place] [address] Dr [address], [place], [id number], [place] tel:[phone] CV[place] - [place] [facility] [place] Chronic venous hypertension (idiopathic) with other complications of bilateral lower extremity Figueroa TROTTER, RVT, RPVI Eliel. [address] [facility], [address], Ana [place]ishal banks [place], [id number] , [place]. tel:[phone] Family History Family Member Type Diagnosis Age At Onset No Information Payers Payer name Insurance type Identifiers Authorization(s) Com ments TRAM [place] Medicare Advantage BL iber ID: [id number] Name: Coverage Status Eligibility Check on: [id number] nship to Subscriber: selfPayer Address: [facility] [id number], [place], [address], [facility] Phone: [phone] Social History Type Description Quantity Date Captured Comments Alcohol Use Details Unknown Caffeine Use Details Unknown Tobacco Use Status No Information Smoking Status Former Smoker Non-Smoking Tobacco Use Details : No Details Available : No Details Available Sex Female Current Gender Female (finding) Vital Signs Date / Time: Height Weight BMI Pulse Rate Blood Pressure Temperature Respiratory Rate Body Surface Area Head Circumference Head Circ. Percentile Wt./Barrett. Percentile BMI percentile Pulse Ox Inhaled Ox 80.290 kg (177.00 lbs) 29.5 3 kg/m eter (2) 136/74 mm[Hg] Chief Complaint And Reason For Visit No Information Plan Of Treatment Date Type [...] nt Illness No Information Functional Status Date Description Comments No Information Instructions Date Instruction Additional Infor elisa Pre and post instruc tions reviewed and provided Related to Localized edema Patient education booklet given Related to Localized edema Lifestyle education Related to B shanti mass index (BMI) 29.0-29.9, adult Giving Encouragement to exercise Related to Body mass index (BMI) 29.0-29.9, adult Diet education Related to Body mass index (BMI) 29.0-29.9, adult Pre and [...]
--- OUTSIDE RECORDS SUMMARY | 2025-09-02 06:15 | XMS_ITS ---
[facility] Address [address] [place] [address] Care Team Providers Care Tool Mechanic Name Role Phone Charmaine Canada Primary Care Provider Unavailable Jean Carlos Disla Unavailable [phone] Medications Medication SIG (Take, Route, Frequency, Duration) Notes Start Date End Date Status Meloxicam 15 MG 1 tablet Orally Once a day Unknown Lisinopril 5 MG 1 tablet Orally Once a day Unknown Calcium + D Unknown Fluticasone Furoate Unknown Mucinex Unknown Vitamin D3 50 MCG (1999) 1 capsule Orally Once a day; Duration: 30 day(s) Active ASO Ankle/Foot Stablizing AFO As directed Wear Daily; Duration: as needed 01/29/2022 Active Compression Stockings 20-30mm Hg 1 pair wear daily; Duration: 30 days Active Magnesium 500 MG 1 tablet with a meal Orally Once a day; Duration: 30 day(s) Not-Taking Vitamin D Unknown PreserVision AREDS A ctive Vitamin C 1000 MG 1 tablet Orally Once a day Active Cod Liver Oil - as directed Orally Active Levothyroxine Sodium 125 MCG 1 tablet in the morning on an empty stomach Orally Once a day; Duration: 30 day(s) night time Active Republic 3 Active Lexapro 20 MG 1 tablet Orally Once a day; Duration: 30 day(s) Active amLODIPine Besylate 5 MG 1 tablet Orally Once a day; Duration: 30 day(s) Active Fish Oil 1000 MG 1 capsule Orally Once a day Active Encounters Encounter Location Date [facility] [address] [place] [id number] 09/02/2025 Jean Carlos Disla Plan Of Treatment Next Appt Details Provider Name:Jean Carlos Disla , 12/02/2025 03:15:00 PM, [address] [place] [address], [place] [address], [place], [address], Progress Notes * Merna BHAGATineDOB:1954 (70 yo F)Acc No.[id number]:09/02/2025 Progress Note Patient: Rebecca COSME Provider: Efrain Disla DPM :1955 A ge:70 Y S ex:Female Date:09/02/2025 Address:[address] [place], [place] [id number] Pcp:Krysta Gibbs Subjective: * Chief Complaints: * * Medical History: * Medications: T aking Lexapro 20 MG Tablet 1 tablet Orally Once a day , Taking amLODIPine Besylate 5 MG Tablet 1 tablet Orally Once a day , Taking Fish Oil 1000 MG Capsule 1 capsule Orally Once a day , Taking Cod Liver Oil - Oil as directed Orally , Taking Levothyroxine Sodium 125 MCG Tablet 1 tablet in the morning on an empty stomach Orally Once a day , Notes to Pharmacist: night time, Taking Republic 3 , Taking PreserVision AREDS , Taking Vitamin C 1000 MG Tablet 1 tablet Orally Once a day , Taking Vitamin D3 50 MCG (1999 UT) Capsule 1 capsule Orally Once a day , Taking ASO Ankle/Foot Stablizing AFO As directed Wear Daily , Taking Compression Stockings 20-30mm Hg closed toe- knee high 1 pair wear daily , Not-Taking/PRN Magnesium 500 MG Tablet 1 tablet with a meal Orally Once a day , Unknown Vitamin D , Unknown Lisinopril 5 MG Tablet 1 tablet Orally Once a day , Unknown Calcium + D , Unknown Fluticasone Furoate , Unknown Mucinex , Unknown Meloxicam 15 MG Tablet 1 tablet Orally Once a day Objective: * Vitals: Assessment: Plan: * Treatment: * Images: * The named appointment provid er may or may not be the originator of this progress note, and it is not deemed complete until electronically signed by the appointment provider. Sign off status: Pending * Provider: Efrain Disla DPM Date: 11/02/2024 Generated for Mariah bah/Lisandro/Shannan on: 12/08/2024 09:32 PM EST
--- OUTSIDE RECORDS SUMMARY | 2025-10-07 21:32 | XMS_ITS | Patient Health Record ---
Author Organization [facility] Address [address] [place] [address] Care Team Providers Care Shower Maid Name Role Phone Charmaine Canada Primary Care Provider Unavailable Jean Carlos Disla Unavailable [phone] Allergies No Known Allergies Reason For Referral No Information Medications Medication SIG (Take, Route, Frequency, Duration) Notes Start Date End Date Status PreserVision AREDS A ctive Meloxicam 15 MG 1 tablet Orally Once a day Unknown Vitamin C 1000 MG 1 tablet Orally Once a day Active Vitamin D3 50 MCG (2000 UT) 1 capsule Orally Once a day; Duration: 30 day(s) Active ASO Ankle/Foot Stablizing AFO As directed Wear Daily; Duration: as needed 01/29/2022 Active Compression Stockings 20-30mm Hg 1 pair wear daily; Duration: 30 days Active Lexapro 20 MG 1 tablet Orally Once a day; Duration: 30 day(s) Active Magnesium 500 MG 1 tablet with a meal Orally Once a day; Duration: 30 day(s) Not-Taking amLODIPine Besylate 5 MG 1 tablet Orally Once a day; Duration: 30 day(s) Active Vitamin D Unknown Fish Oil 1000 MG 1 capsule Orally Once a day Active Lisinopril 5 MG 1 tablet Orally Once a day Unknown Cod Liver Oil - as directed Orally Active Calcium + D Unknown Levothyroxine Sodium 125 MCG 1 tablet in the morning on an empty stomach Orally Once a day; Duration: 30 day(s) night time Active Fluticasone Furoate Unknown Millis 3 Active Mucinex Unknown Immunizations Vaccine Route Administration Date Status Comme nts COVID-19 Moderna Vaccine Unknown 09/15/2021 Administered 1st [...] Problem Status W/U Status Risk Notes Problem Localized, primary osteoarthritis of the ankle and/or foot (573022981) 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 Plan Of Treatment Pending Test Test Name Order Date X ray : Foot, left 3V 07/06/2024 Next Appt Details Provider Name:Jean Carlos Live Disla , 12/02/2025 03:15:00 PM, [address] [facility] [facility], [address], [place], [address], Insurance Providers Payer Name Payer Address Payer Phone Subscriber Number Group Number Insured Name Patient Relationship to Insured Coverage Start Date Coverage End Date [facility] 65 Medicare Preferred [address] [place] [address] [phone] [id number] Rebecca Ortiz Self - patient is the insured Medical (General) History Medical History History ICD Code Arthritis Back,Hip,and Knee pain Fibromyalgia Hypertension Macular degeneration Thyroid disorder Sinus conditions Cataracts Diverticulosis Surgical History Surgery Date(Month/Year) removal of partial ovaries 1989 Thyroid Surgery 1997? Left ovary surgery 1999?
--- OUTSIDE RECORDS SUMMARY | 2025-10-07 21:32 | XMS_ITS | Clinical Summary ---
Author Organization [facility] [address] [facility] Address [address] [place] [address] Phone Care Team Providers Care Glue Jointer Feeder Name Role Phone Hetal Burton NP Primary Care Provider Allergies No known active allergies Social History [...] AM EDT Narrative 07/25/2024 4:04 PM EDT [facility] Diagnostic Imaging Department [address] [place] [address] Patient: REBECCA BHAGAT Sarah Gore./Age/Sex: 1955 - 68 - F Unit#: [id number] Location/Status: SPDIMAM/REG CLI Mnemonic/Ordering Site: [facility] Ordering Physician: HETAL BURTON NP [facility] Screening Digital - 07/25/[address] Report Status:Signed EXAM: [facility] Screening Digital EXAM DATE AND TIME: 07/25/2024 7:32 AM HISTORY: Screening. Excisional and percutaneous left breast biopsies yielding benign pathology. COMPARISON: 07/20/23, 07/17/22, 06/30/21, 06/18/20 TECHNIQUE: Bilateral digital breast tomosynthesis was performed in the CC and MLO projections. Computer aided detection with [employer] 3D 3.1 was employed. TISSUE DENSITY: b. [...] Mammogram performed at [facility] [address] [place] [address] Dictating Physician: ANGIE KNOWLES MD Electronically Signed by: ANGIE KNOWLES MD Dic Date/Time: 07/25/24 160 Sign date/Time: 07/25/24 160 Procedure Note Angie Knowles MD - 08/21/2024 [facility] Diagnostic Imaging Department [address] [place] [address] Patient: REBECCA BHAGAT Sarah /Age/Sex: 1955 - 68 - F Unit#: [id number] Location/Status: [facility] Mnemonic/Ordering Site: [facility] Ordering Physician: HETAL BURTON NP [facility] Screening Digital - 07/25/[address] Report Status:Signed EXAM: [facility] Screening Digital EXAM DATE AND TIME: 07/25/2024 7:32 AM HISTORY: Screening. Excisional and percutaneous left breast biopsiesyielding benign pathology. COMPARISON: 07/20/23, 07/17/22, 06/30/21, 06/18/20 TECHNIQUE: Bilateral digital breast tomosynthesis was performed in the CCand MLO projections. Computer aided detection with [employer] AI 3D 3.1was employed. TISSUE DENSITY: b. [...] Mammogram performed [place] [address] Dictating Physician: ANGIE KNOWLES MD Electronically Signed [...] [place] Care Teams Glue Jointer Feeder Relationship Specialty Start Date End Date Hetal Burton NP [address] [place], [place] PCP - General Nurse Practitioner 10/05/24
== END 2025-10-07 15:01 | disposition home or self-care (01) ==
LOC: HO.HMGAL 14:59
PROVIDERS: PCP Physician Assistant Medical; Visit Provider Registered Nurse Emergency
DX: J30.89 Other allergic rhinitis (principal)
CPT/HCPCS: 95117; 95165